=== PATIENT | female | born 1955 | race Caucasian/White ===

== ENCOUNTER 2017-03-19 15:49 | Outpatient (CLI) ==
[2015-01-04 19:24] VITALS: BMI 29.1
--- NOTE | 2017-03-19 16:41 | DI ---
EXAM: Three views of the right shoulder. History: Right shoulder pain. Findings: No acute fracture or dislocation. Moderate narrowing of the right AC joint and mild narr owing of the right glenohumeral joint. Impression: 1. No acute osseous abnormality. 2. 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
--- NOTE | 2017-03-19 16:43 | DI ---
EXAM: Three views of the thoracic spine. History: Thoracic back pain. Findings: Cholecystectomy clips. Gastric banding device. No acute fracture or subluxation. Mild to moderate multilevel degenerative disc space narrowing with a few prominent anterior osteophytes. Atherosclerotic vascular calcifications. Impression: No acute osseous abnormality of the thoracic spine. Mild to moderate degenerative disc disease.
--- NOTE | 2017-03-19 16:43 | DI ---
EXAM: Five views of the cervical spine HISTORY: Neck pain. COMPARISON: None FINDINGS: There is no lytic or blastic lesion of the cervical spine. There is mild straightening of the cervical spine. There is mild facet arthropathy and minimal anterior osteophyte formation. Th e neural foramen appear patent. The odontoid process is unremarkable. IMPRESSION: Mild degenerative disease of the cervical spine with no acute compression fracture or s ubluxation. Straightening of the cervical spine may be positioning versus muscle spasm.
== END 2017-03-19 15:50 | disposition home or self-care (01) ==
LOC: RAD 15:49
PROVIDERS: ATTEND Family Medicine
DX: M54.2 Cervicalgia (principal); M54.6 Pain in thoracic spine; G89.29 Other chronic pain; M25.511 Pain in right shoulder

== ENCOUNTER 2017-09-23 17:08 | Emergency (ER) ==
[2017-09-23 17:15] VITALS: BP 122/78; TEMP 99.1; BMI 27.1
[2017-09-23] MEDS ORDERED: DILAUDID 1 MG/ML SYRINGE IM STA (17:29)
--- NOTE | 2017-09-23 17:33 | ED.PDOC ---
General ED Provider: Dr. MOMO ALFONSO Chief Complaint: Headache Stated Complaint: headache Time Seen by Physician: 17:10 (painx 1 day) Mode of Arrival: Walk-In Information Source: Patient Exam Limitations: No limitations Primary Care Provider: JUAN A CERVANTES Nursing and Triage Documentation Reviewed and Agree: Yes (seen with [place] at all times) Reviewed sepsis parameters & appropriate labs ordered?: Yes System Inflammatory Response Syndrome: Not Applicable Sepsis Protocol: For patient's 13 years and over: Temp is 96.8 and below OR 101 and greater Pulse >90 BPM Resp >20/minute Acutely Altered Mental Status Are patient's symptoms suggestive of a new infection, such as: -Pneumonia -Skin, Soft Tissue -Endocarditis -UTI -Bone, Joint Infection -Implantable Device -Acute Abdominal Infection -Wound Infection -Meningitis -Blood Stream Catheter Infection -Unknown Neurological Complaint Exam - Headache Complaint/Exam Onset: Gradual Duration: 1 day/ notrauma Symptoms Are: Still present Timing: Constant Episodes Lasting: Hours Worst Headache Ever: No Initial Severity: None Current Severity: None Character: Reports: Throbbing Aggravating: Reports: None Alleviating: Reports: None Associated Signs and Symptoms: Denies: Dizziness, Seizure, Nausea, Vomiting, Sinus pressure, Fever, Neck pain, Neck stiffness, Decreased LOC, Visual changes Related History: Reports: Similar episode Related Surgical History: Reports: None SAH Risk Factors: Reports: None Meningitis Risk Factors: Reports: None SDH Risk Factors: Reports: Elderly Temporal Arteritis Risk Factors: Reports: Female, Normal Head CT Within Last 12 Months: Yes (pain is same for character and distribution) Fundoscopic Exam: Present: Normal Findings Papilledema Present: No Temporal Artery Tenderness: Present: None Sinus Tenderness: Present: None TMJ Tenderness: Present: None Glascow Coma Scale (see protocol): 15 Meningeal Signs Positive: No Pain on Passive Flexion-Positive Kernig's: No ROM Limited In: No Limitiations Focal Weakness: Present: None Focal Sensory Loss: Present: None Gait: Normal Nystagmus Present: No Gag Reflex Present: Yes Differential Diagnoses: Migraine Review of Systems - Review Of Systems Constitutional: Reports: No symptoms Eyes: Reports: No symptoms Ears, Nose, Mouth, Throat: Reports: No symptoms Respiratory: Reports: No symptoms Cardiac: Reports: No symptoms GI: Reports: No symptoms : Reports: No symptoms Musculoskeletal: Reports: No symptoms Skin: Reports: No symptoms Neurological: Reports: Headache Endocrine: Reports: No symptoms Hematologic/Lymphatic: Reports: No symptoms All Other Systems: Reviewed and Negative Past Medical History - Past Medical History Previously Healthy: Yes Endocrine: Reports: Hypothyroid Cardiovascular: Reports: None Respiratory: Reports: None Hematological: Reports: None Gastrointestinal: Reports: None Genitourinary: Reports: None Neuro/Psych: Reports: Other (chronic headache) Musculoskeletal: Reports: None Cancer: Reports: None Last Menstrual Period: 1996 - Surgical History General Surgical History: Reports: None - Family History Family History: Reports: None - Social History Smoking Status: Former smoker Hx Substance Use: No Alcohol Screening: Occasionally - Immunizations Tetanus Shot up to Date: Yes Physical Exam - Physical Exam Appearance: Well-appearing, No pain distress, Well-nourished Eyes: VIKY, EOMI, Conjunctiva clear ENT: Ears normal, Nose normal, Oropharynx normal Respiratory: Airway patent, Breath sounds clear, Breath sounds equal, Respirations nonlabored Cardiovascular: RRR, Pulses normal, No rub, No murmur GI/: Soft, Nontender, No masses, Bowel sounds normal, No Organomegaly Musculoskeletal: Normal strength, ROM intact, No edema, No calf tenderness Skin: Warm, Dry, Normal color Neurological: Sensation intact, Motor intact, Reflexes intact, Cranial nerves intact, Alert, Oriented Psychiatric: Affect appropriate, Mood appropriate Critical Care Note - Critical Care Note Total Time (mins): 0 Course - Course Orders, Labs, Meds: Orders Category Date Time Status Hydromorphone HCl [Dilaudid 1 mg/ml Syringe] MEDS 09/23/17 17:29 Stat 0.5 mg IM ONCE STA Vital Signs: Temp Pulse Resp BP Pulse Ox 09/23/17 17:09 99.1 F 85 20 122/78 97 Departure - Departure Time of Disposition: 00:00 Disposition: HOME SELF-CARE Discharge Problem: Headache Instructions: Migraine Headache (ED), Acute Headache (ED) Condition: Good Pt referred to PMD for follow-up: Yes Additional Instructions: Please call your Family Physician as soon as possible to schedule a follow-up appointment. Allergies/Adverse Reactions: Allergies codeine Adverse Reaction (Verified 09/23/17 17:16) diphenhydramine [From Benadryl] Adverse Reaction (Verified 09/23/17 17:16) ondansetron [From Zofran (as hydrochloride)] Adverse Reaction (Verified 12/26/ 17 17:16) promethazine HCl [From Phenergan] Adverse Reaction (Verified 09/23/17 17:16) Home Medications: Ambulatory Orders Butalb/Acetaminophen/Caffeine [Fioricet] 1 tab PO Q4-6H PRN 09/23/17 Eletriptan HBr [Relpax] 40 mg PO Q6HR PRN 09/23/17 Hydrocodone/Acetaminophen [[place] 10-325 Tablet] 1 each PO Q8HR #4 tablet Levothyroxine Sodium [Levo-T] 25 mcg PO DAILY 09/23/17 Topiramate [Topamax] 50 mg PO BID 09/23/17 Disposition Discussed With: Patient
== END 2017-09-23 18:24 | disposition home or self-care (01) ==
LOC: ED 17:08
DX: R51 Headache (principal)
CPT/HCPCS: 96372; 99283

== ENCOUNTER 2017-09-27 16:59 | Emergency (ER) ==
[2017-09-27 17:04] VITALS: BP 126/85; TEMP 97.6; BMI 26.2
--- NOTE | 2017-09-27 17:38 | ED.PDOC ---
General ED Provider: Dr. MOMO ALFONSO Chief Complaint: Sore Throat Stated Complaint: SORE THROAT Time Seen by Physician: 17:00 ( SORE THROAT STATES SORE THROAT IS CASUING A HEAD ACHE ) Mode of Arrival: Walk-In Information Source: Patient Exam Limitations: No limitations (SEEN LAST WEEK FOR HEADACHE TREATED AND REQUESTED TO FOLLOW UP WITH PMD) Primary Care Provider: JUAN A CERVANTES Nursing and Triage Documentation Reviewed and Agree: Yes Reviewed sepsis parameters & appropriate labs ordered?: Yes System Inflammatory Response Syndrome: Not Applicable Sepsis Protocol: For patient's 13 years and over: Temp is 96.8 and below OR 101 and greater Pulse >90 BPM Resp >20/minute Acutely Altered Mental Status Are patient's symptoms suggestive of a new infection, such as: -Pneumonia -Skin, Soft Tissue -Endocarditis -UTI -Bone, Joint Infection -Implantable Device -Acute Abdominal Infection -Wound Infection -Meningitis -Blood Stream Catheter Infection -Unknown System Inflammatory Response Syndrome: Not Applicable EENT Complaint Exam - Throat Complaint/Exam Onset/Duration: 4 DAYS OF FLU LIKE SYMP AND STATED SHE HAS A HEAD ACHE Symptoms Are: Still present Timimg: Constant Initial Severity: Mild Current Severity: Mild Aggravating: Reports: None Alleviating: Reports: None Associated Signs and Symptoms: Reports: Chills, Cough, Nasal congestion. Denies : Fever, Dysphagia, Drooling, Foreign body sensation, Wheezing, Hoarseness, Sinus discomfort, Difficulty breathing, Lethargy, Irritability, Decreased activity, Vomiting, Diarrhea, Decreased hearing, Ear drainage Uvula Midline: Yes Kailyn-tonsillar Fluctuence: No Scarlatinaform Rash Present: No Stridor Present: No Sinus Tenderness Present: No Tonsillar Hypertrophy Present: No Tonsillar Exudate Present: No Kailyn-tonsillar Swelling Present: No Adenopathy Present: No Splenomegaly Present: No Review of Systems - Review Of Systems Constitutional: Reports: Malaise Eyes: Reports: No symptoms Ears, Nose, Mouth, Throat: Reports: Throat pain Respiratory: Reports: No symptoms Cardiac: Reports: No symptoms GI: Reports: No symptoms : Reports: No symptoms Musculoskeletal: Reports: No symptoms Skin: Reports: No symptoms Neurological: Reports: Headache Endocrine: Reports: No symptoms Hematologic/Lymphatic: Reports: No symptoms All Other Systems: Reviewed and Negative Past Medical History - Past Medical History Previously Healthy: Yes Endocrine: Reports: Hypothyroid Cardiovascular: Reports: None Respiratory: Reports: None Hematological: Reports: None Gastrointestinal: Reports: None Genitourinary: Reports: None Neuro/Psych: Reports: Other (chronic headache) Musculoskeletal: Reports: None Cancer: Reports: None Last Menstrual Period: hysterectomy - Surgical History General Surgical History: Reports: None - Family History Family History: Reports: None - Social History Smoking Status: Never smoker Hx Substance Use: No Alcohol Screening: Occasionally Physical Exam - Physical Exam Appearance: Well-appearing, No pain distress, Well-nourished Eyes: VIKY, EOMI, Conjunctiva clear ENT: Erythema Respiratory: Airway patent, Breath sounds clear, Breath sounds equal, Respirations nonlabored Cardiovascular: RRR, Pulses normal, No rub, No murmur GI/: Soft, Nontender, No masses, Bowel sounds normal, No Organomegaly Musculoskeletal: Normal strength, ROM intact, No edema, No calf tenderness Skin: Warm, Dry, Normal color Neurological: Sensation intact, Motor intact, Reflexes intact, Cranial nerves intact, Alert, Oriented Psychiatric: Affect appropriate, Mood appropriate Re-Evaluation - Re-Evaluation Time of Re-Evaluation: 17:00 (I SAW THIS PT WITH JOE BUCKLEY RN. PT DOES NOT TO SUFFER FROM ANY PHOTOPHOBIA NAUSEA, VOMITING , IN GENERAL THIS HEADACHE DOES NOT HAVE ANY CHANGES IN THE PATTERN NOR DISTRIBUTION OF PAIN. I TOLD PT THAT WE WILL PROVIDE A FEW PAIN MEDS AND AND SHE MUST FOLLOW UP WITH PMD. MIGRANE IS CHRONIC PAIN ISSUE AND MUST SEE PMD FOR CARE BEYOND 1 DAY OF PAIN CONTROL, JOE ELLIS RN WAS PRESENT AT ALL TIMES ) Critical Care Note - Critical Care Note Total Time (mins): 0 Course - Course Orders, Labs, Meds: Orders Category Date Time Status MOLECULAR FLU A/B Stat LAB 09/27/17 17:25 Ordered MOLECULAR GROUP A STREP Stat LAB 09/27/17 17:25 Ordered Vital Signs: Temp Pulse Resp BP Pulse Ox 09/27/17 16:59 97.6 F 73 16 126/85 94 L Departure - Departure Time of Disposition: 17:41 Disposition: HOME SELF-CARE Discharge Problem: Headache, Sore throat symptom, Viral syndrome Instructions: Migraine Headache (ED), Viral Syndrome (ED), General Headache (ED ) Condition: Good Pt referred to PMD for follow-up: Yes Additional Instructions: Please call your Family Physician as soon as possible to schedule a follow-up appointment. YO MUST SEE YOUR M.D. AND YOUR NEUROLOGIST FOR FURTHER TREATMENT AND EVALUATION OF YOUR HEADACHE . Prescriptions: Hydrocodone/Acetaminophen [[place] 10-325 Tablet] 1 each PO Q8HR #3 tablet Allergies/Adverse Reactions: Allergies codeine Adverse Reaction (Verified 09/27/17 17:05) diphenhydramine [From Benadryl] Adverse Reaction (Verified 09/27/17 17:05) ondansetron [From Zofran (as hydrochloride)] Adverse Reaction (Verified 17:05) promethazine HCl [From Phenergan] Adverse Reaction (Verified 09/27/17 17:05) Home Medications: Ambulatory Orders Butalb/Acetaminophen/Caffeine [Fioricet] 1 tab PO Q4-6H PRN 09/23/17 Eletriptan HBr [Relpax] 40 mg PO Q6HR PRN 09/23/17 Levothyroxine Sodium [Levo-T] 25 mcg PO DAILY 09/23/17 Topiramate [Topamax] 50 mg PO BID 09/23/17 Hydrocodone/Acetaminophen [[place] 10-325 Tablet] 1 each PO Q8HR #3 tablet
[2017-09-27] MEDS ORDERED: LEVAQUIN PO STA (17:45)
== END 2017-09-27 18:11 | disposition home or self-care (01) ==
LOC: ED 16:59
DX: B34.9 Viral infection, unspecified (principal); R51 Headache; J02.9 Acute pharyngitis, unspecified
CPT/HCPCS: 87502; 87651; 99283